=== PATIENT | male | born 1990 | race Caucasian/White ===

== ENCOUNTER → 2021-09-03 | Outpatient (CLI) | payer BC | LOC: KOH-I 12:58 | DX: M54.2 Cervicalgia (principal); M47.812 Spondylosis without myelopathy or radiculopathy, cervical region | CPT/HCPCS: 72141 ==

== ENCOUNTER → 2022-04-08 | Outpatient (CLI) | payer BC | LOC: KOH-I 14:37 | DX: M54.50 Low back pain, unspecified (principal) | CPT/HCPCS: 72100 ==